=== PATIENT | male | born 1970 | race Hispanic/Latino ===

== ENCOUNTER → 2022-06-07 | Emergency (ER) | payer OTHER ==
[~2022-06-07] VITALS: Ht 165.1 cm; Wt 99.8 kg
[2022-06-07 15:34] VITALS: BP 161/82
== END | disposition home or self-care (01) ==
LOC: EDH 15:30
DX: S86.912A Strain of unspecified muscle(s) and tendon(s) at lower leg level, left leg, initial encounter (principal); M25.562 Pain in left knee; R03.0 Elevated blood-pressure reading, without diagnosis of hypertension; E11.9 Type 2 diabetes mellitus without complications; X58.XXXA Exposure to other specified factors, initial encounter; Y93.9 Activity, unspecified; Y92.89 Other specified places as the place of occurrence of the external cause; Y99.8 Other external cause status